=== PATIENT | female | born 1970 | race Caucasian/White ===

== ENCOUNTER → 2016-12-26 | Outpatient (CLI) | payer BC | LOC: BHSO 15:17 | DX: F41.1 Generalized anxiety disorder (principal) ==

== ENCOUNTER → 2017-02-02 | Outpatient (CLI) | payer BC | LOC: BHSO 14:59 | DX: F41.1 Generalized anxiety disorder (principal) | CPT/HCPCS: G0463 ==

== ENCOUNTER → 2017-05-11 | Outpatient (CLI) | payer BC | LOC: BHSO 16:02 | DX: F90.0 Attention-deficit hyperactivity disorder, predominantly inattentive type (principal) | CPT/HCPCS: G0463 ==

== ENCOUNTER → 2017-09-12 | Outpatient (CLI) | payer BC | LOC: BHSO 16:22 | DX: F90.0 Attention-deficit hyperactivity disorder, predominantly inattentive type (principal) | CPT/HCPCS: G0463 ==

== ENCOUNTER → 2017-12-08 | Outpatient (CLI) | payer BC | LOC: BHSO 15:35 | DX: F90.0 Attention-deficit hyperactivity disorder, predominantly inattentive type (principal) | CPT/HCPCS: G0463 ==

== ENCOUNTER → 2018-03-01 | Outpatient (CLI) | payer BC | LOC: BHSO 15:39 | DX: F90.0 Attention-deficit hyperactivity disorder, predominantly inattentive type (principal) | CPT/HCPCS: G0463 ==

== ENCOUNTER → 2018-11-05 | Outpatient (CLI) | payer BC | LOC: BHSO 13:15 | DX: F90.0 Attention-deficit hyperactivity disorder, predominantly inattentive type (principal) | CPT/HCPCS: G0463 ==